=== PATIENT | female | born 2000 | race Hispanic/Latino ===

== ENCOUNTER 2018-10-18 21:54 | Emergency (ER) | payer OTHER, SELFPAY ==
[2018-10-18] MEDS ORDERED: ACETAMINOPHEN 500 MG TAB ONE (22:33)
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
== END 2018-10-19 00:25 | disposition home or self-care (01) ==
LOC: ER 21:54
DX: S00.33XA Contusion of nose, initial encounter (principal); Y04.0XXA Assault by unarmed brawl or fight, initial encounter
CPT/HCPCS: 99283

== ENCOUNTER 2020-07-14 08:55 | Emergency (ER) | payer OTHER ==
--- OUTSIDE RECORDS SUMMARY | 2020-07-14 08:57 | XMS REPORT | Continuity of Care Document ---
:[address] [facility] t Address [address] [place] [address] Care Team Providers Name Role Phone Jhoana Oneill Attending Clinician Problems This patient has no known problems. Allergies, Adverse Reactions, Alerts This patient has no known allergies or adverse reactions. Medications This patient has no known medications. Procedures This patient has no known procedures. Encounters Start End Encounter Admission Attending Care Care Encounter Source Date/Time Date/Time Type Type Clinicians Facility Department ID 2019-05-02 2019-05-02 Routine TYREE Chambers [id number] 04 14:19:28 15:21:15 Osmany Ely GYRO MECHANIC [id number] Visit REGIONAL [id number] MATERNAL [id number] & CHILD [address] [place] [address] Results This patient has no known results.
[2020-07-14 09:34] LABS: Urine Blood 1+ (Negative); Urine Glucose Negative (Negative); Urine Protein Negative (Negative); Urine pH 7.5 (5.0-7.0)
[2020-07-14 09:40] LABS: Absolute Lymphocytes (CBC) 2.4 K/uL (0.7-4.9); Basophils % 0.3 % (0-1.3); Hematocrit 37.2 % (36.0-45.0); Lymphocytes % 21.7 % (15.3-44.8); MPV 8.2 fL (7.6-11.3); RBC Red Blood Cell Count 3.91 M/uL (3.86-4.86)
[2020-07-14 10:10] LABS: BUN Blood Urea Nitrogen 4 mg/dL (7-18); Bicarbonate 23 mmol/L (21-32); Glucose Level 91 mg/dL (74-106); HCG, Quantitative 5686 mIU/mL (1-3); Potassium 3.7 mmol/L (3.5-5.1); Sodium Level 137 mmol/L (136-145)
[2020-07-14 10:26] LABS: Urine Bacteria <20 /HPF (<20); Urine RBC <5 /HPF (NONE SEEN)
--- NOTE | 2020-07-14 11:13 | ER ---
Nurse's Notes [facility] Name: Balbina Avery Age: 20 yrs Sex: Female : 2000 Arrival Date: 07/14/2020 Time: 08:59 Bed 6 Private MD: Diagnosis: Threatened Presentation: 07/14 09:01 Chief complaint: Spotty dark red vaginal bleeding with a grape sized blood clot x 2 hb hours. Denies pain. 19 weeks , does not remember due date or LMP Sees Dr. Vizcarra at [facility] in [facility]. Coronavirus screen: At this time, the client does not indicate any symptoms associated with coronavirus-19. Ebola Screen: No symptoms or risks identified at this time. Initial Sepsis Screen: Does the patient meet any 2 criteria? No. Patient's initial sepsis screen is negative. Does the patient have a suspected source of infection? No. Patient's initial sepsis screen is negative. Risk Assessment: Do you want to hurt yourself or someone else? Patient reports no desire to harm self or others. Onset of symptoms was July 14, 2020. 09:01 Method Of Arrival: Ambulatory hb 09:01 Acuity: AMELIE 3 hb CRAB PICKER: 09:16 2, Full Term 1, 0, Living 1 pm1 Historical: - Allergies: 09:05 No Known Allergies; hb - Home Meds: 09:05 None [Active]; hb - PMHx: 09:05 None; hb - PSHx: 09:05 None; hb - Immunization history:: Adult Immunizations up to date. - Social history:: Smoking status: Patient denies any tobacco usage or history of. Screenin:32 Abuse screen: Denies threats or abuse. Denies injuries from another. Nutritional ss screening: No deficits noted. Tuberculosis screening: Never had TB. Fall Risk None identified. Assessment: 09:32 General: Appears in no apparent distress. comfortable, Behavior is calm, cooperative, ss Denies fever, feeling ill, fatigue, chills. Pain: Denies pain. Neuro: Level of Consciousness is awake, alert, obeys commands, Oriented to person, place, time, situation, Biomedical Field Service Engineer are equal bilaterally Speech is normal. Cardiovascular: Capillary refill < 3 seconds is brisk in bilateral fingers. Respiratory: Airway is patent Trachea midline Respiratory effort is even, unlabored, Respiratory pattern is regular, symmetrical, Denies cough, shortness of breath. GI: Patient currently denies diarrhea, nausea, vomiting. : Reports vaginal bleeding that is "just like a period that started about 2 hours ago. Denies bleeding at this time." Denies burning with urination, urinary frequency. EENT: Nares are clear Oral mucosa is moist. Throat is clear. Derm: Skin is intact, is healthy with good turgor, Skin is dry, Skin is pink, warm \\T\\ dry. Musculoskeletal: Circulation, motion, and sensation intact. Range of motion: intact in all extremities, Swelling absent. 10:30 Reassessment: Patient appears in no apparent distress at this time. Patient and/or ss family updated on plan of care and expected duration. Pain level reassessed. Patient is alert, oriented x 3, equal unlabored respirations, skin warm/dry/pink. Patient denies pain at this time. 11:15 Reassessment: Upon discharge, patient states that right before she noticed the bleeding ss she had intercourse. PT verbalizes understanding importance of pelvic rest upon discharge. Vital Signs: 09:01 BP 135 / 65; Pulse 81; Resp 16; Temp 97.9; Pulse Ox 100% ; Weight 72.57 kg; Height 5 hb ft. 2 in. (157.48 cm); Pain 0/10; 09:49 BP 126 / 80; Pulse 90; Resp 16; Pulse Ox 100% ; sv 09:01 Body Mass Index 29.26 (72.57 kg, 157.48 cm) ED Course: 08:59 Patient arrived in ED. mr 09:00 Arm band placed on. hb 09:05 Triage completed. hb 09:06 Tim Cisneros, MOON is PHCP. pm1 09:06 Jean Mckay MD is Attending Physician. pm1 09:14 Caroline Kennedy, DANA is Primary Nurse. ss 09:32 Patient has correct armband on for positive identification. Bed in low position. Call ss light in reach. Pulse ox on. NIBP on. Warm blanket given. 09:32 Inserted saline lock: 20 gauge in right antecubital area, using aseptic technique. ss Blood collected. Patient maintains SpO2 saturation greater than 95% on room air. 10:11 Abo/rh Typing Sent. kj1 10:24 OB Limited In Process Unspecified. EDMS 11:06 Urine Microscopic Only Sent. sv 11:07 Quantitative Hcg Sent. sv 11:07 Basic Metabolic Panel Sent. sv 11:07 CBC with Diff Sent. 11:20 No provider procedures requiring assistance completed. IV discontinued, intact, ss bleeding controlled, No redness/swelling at site. Pressure dressing applied. Administered Medications: No medications were administered Outcome: 11:13 Discharge ordered by MD. pm1 11:20 Discharged to home ambulatory. 11:20 Condition: good 11:20 Discharge instructions given to patient, Instructed on discharge instructions, follow up and referral plans. Demonstrated understanding of instructions, follow-up care. 11:22 Patient left the ED. Signatures: Dispatcher [employer] Jayashree Altamirano RN RN ForrestFiona mr Caroline Kennedy RN RN Tim Cisneros, FRUIT BUYING GRADER FRUIT BUYING GRADER pm1 Kassidy Penny RN RN Ellie Patterson kj1 Corrections: (The following items were deleted from the chart) 10:24 10:10 In radiology for Transvaginal Ob+US.RAD.DION. EDMS EDMS
--- NOTE | 2020-07-14 11:13 | EDPHYS ---
Physician Documentation [facility] Name: Balbina Avery Age: 20 yrs Sex: Female : 2000 Arrival Date: 07/14/2020 Time: 08:59 Bed 6 Private MD: ED Physician Jean Mckay HPI: 07/14 09:16 This 20 yrs old Female presents to ER via Ambulatory with complaints of 19 wks pm1 , Vaginal Bleeding. 09:16 The patient presents with vaginal bleeding that is. Onset: The symptoms/episode pm1 began/occurred 2 hours prior to arrival. Associated signs and symptoms: The patient has no apparent associated signs or symptoms, Pertinent negatives: cramping, dysuria, fever. Severity of symptoms: in the emergency department the symptoms have resolved, and did so earlier today. The patient is sexually active, reportedly has a single partner, [place] 1 hour prior to onset of symptoms. The patient's method of control includes nothing. The patient has not experienced similar symptoms in the past. Patient has not had ultrasound from her OB yet. 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 - Social history:: Smoking status: Patient denies any tobacco usage or history of. ROS: 09:16 Positive for vaginal bleeding, Negative for urinary symptoms, pelvic pain. pm1 09:16 Constitutional: Negative for fever, chills, and weight loss, Cardiovascular: Negative for chest pain, palpitations, and edema, Respiratory: Negative for shortness of breath, cough, wheezing, and pleuritic chest pain, Abdomen/GI: Negative for abdominal pain, nausea, vomiting, diarrhea, and constipation, Back: Negative for injury and pain, MS/Extremity: Negative for injury and deformity, Skin: Negative for injury, rash, and discoloration. Exam: 09:16 Constitutional: This is a well developed, well nourished patient who is awake, alert, pm1 and in no acute distress. Head/Face: Normocephalic, atraumatic. 09:16 Skin: Warm, dry with normal turgor. Normal color with no rashes, no lesions, and no evidence of cellulitis. MS/ Extremity: Pulses equal, no cyanosis. Neurovascular intact. Full, normal range of motion. 09:16 Cardiovascular: Exam negative for acute changes, Rate: normal, Rhythm: regular, Pulses: no pulse deficits are appreciated. 09:16 Respiratory: Exam negative for acute changes, respiratory distress, shortness of breath. 09:16 Abdomen/GI: Inspection: gravid appearance, is noted, Palpation: abdomen is soft and non-tender, in all quadrants. 09:16 Neuro: Exam negative for acute changes, Orientation: is normal, Mentation: is normal, Motor: is normal, moves all fours. Vital Signs: 09:01 BP 135 / 65; Pulse 81; Resp 16; Temp 97.9; Pulse Ox 100% ; Weight 72.57 kg; Height 5 hb ft. 2 in. (157.48 cm); Pain 0/10; 09:49 BP 126 / 80; Pulse 90; Resp 16; Pulse Ox 100% ; sv 09:01 Body Mass Index 29.26 (72.57 kg, 157.48 cm) hb MDM: 09:10 Patient medically screened. pm1 10:50 Data reviewed: vital signs. Data interpreted: Pulse oximetry: on room air is 100 %. pm1 Interpretation: normal. Counseling: I had a detailed discussion with the patient and/or guardian regarding: the historical points, exam findings, and any diagnostic results supporting the discharge/admit diagnosis, lab results, radiology results, the need for outpatient follow up, an OB/Gyne specialist, to return to the emergency department if symptoms worsen or persist or if there are any questions or concerns that arise at home. 07/14 09:10 Order name: Quantitative Hcg pm1 07/14 09:10 Order name: Abo/rh Typing pm07/14 09:10 Order name: Basic Metabolic Panel pm1 07/14 09:10 Order name: CBC with Diff pm07/14 09:10 Order name: HCG, Quantitative; Complete Time: 10:46 EDMS 07/14 09:10 Order name: ABO/RH typing; Complete Time: 10:46 EDMS 07/14 09:10 Order name: Basic Metabolic Panel; Complete Time: 10:46 EDMS 07/14 09:10 Order name: CBC with Automated Diff; Complete Time: 10:46 EDMS 07/14 09:17 Order name: Urine Microscopic Only pm1 07/14 09:17 Order name: Urine Microscopic Only; Complete Time: 10:46 EDMS 07/14 09:33 Order name: Urine --Ancillary (enter results); Complete Time: 10:46 eb 07/14 09:33 Order name: Urine Dipstick-Ancillary; Complete Time: 10:46 EDDC 07/14 10:24 Order name: OB Limited EDMS 07/14 09:10 Order name: Urine Test (obtain specimen); Complete Time: 09:31 pm1 07/14 09:10 Order name: IV Saline Lock; Complete Time: 09:31 pm1 07/14 09:10 Order name: Labs collected and sent; Complete Time: 09:31 pm07/14 09:10 Order name: NPO; Complete Time: 09:14 pm1 07/14 09:10 Order name: Urine Dipstick-Ancillary (obtain specimen); Complete Time: 09:31 pm1 Administered Medications: No medications were administered Disposition: 16:38 Co-signature as Attending Physician, Jean Mckay MD. rn Disposition: 07/14/20 11:13 Discharged to Home. Impression: Threatened . - Condition is Stable. - Discharge Instructions: Threatened Miscarriage, Vaginal Bleeding During , Second Trimester, Pelvic Rest. - Medication Reconciliation Form, Thank You Letter, Antibiotic Education, Prescription Opioid Use form. - Follow up: Emergency Department; When: As needed; Reason: Worsening of condition. Follow up: Private Physician; When: 2 - 3 days; Reason: Recheck today's complaints, Continuance of care, Re-evaluation by your physician. - Problem is new. - Symptoms have improved. Signatures: Dispatcher [employer] [facility] Jean Mckay MD MD rn Smirch, Shelby, RN RN Tim Wiseman, MOON GAME PROGRAMER pm1 Kassidy Penny RN RN Corrections: (The following items were deleted from the chart) 10:24 09:18 Transvaginal Ob+US.RAD.BRZ ordered. [facility] 11:22 11:13 07/14/2020 11:13 Discharged to Home. Impression: Threatened . Condition ss is Stable. Forms are Medication Reconciliation Form, Thank You Letter, Antibiotic Education, Prescription Opioid Use. Follow up: Emergency Department; When: As needed; Reason: Worsening of condition. Follow up: Private Physician; When: 2 - 3 days; Reason: Recheck today's complaints, Continuance of care, Re-evaluation by your physician. Problem is new. Symptoms have improved. pm1
--- NOTE | 2020-07-14 11:39 | RAD REPORT ---
EXAM DESCRIPTION: US - OB Limited - 07/14/2020 10:24 am CLINICAL HISTORY: VAGINAL BLEEDING, COMPARISON: No comparisons FINDINGS: Limited OB sonography shows a closed internal os. Cervical canal is 5 cm long and shows no suspicious finding. Posterior placenta is low lying approximately mm from the internal os. No abrupt ion or marginal hematoma seen. No acute posterior placenta finding. Amniotic fluid volume is normal. measurements were obtained yielding in age of 23 weeks 6 days. Calculated ISSA is 11/04/2020. No gross anatomic abnormality on limited detail. Right ovary was seen with no right adnexal abnormality. Left ovary and left adnexa obscured by bowel. IMPRESSION: Single 23 week 6 day IUP with ISSA of 11/04/2020. Heart rate was 130 BPM. Posterior placenta is low lying measuring approximately 12 mm from a closed internal os. No abruption or marginal hematoma. Amniotic fluid volume is normal.
[2020-07-14 17:49] VITALS: TEMP 97.9; O2SAT 100
[2020-07-14 17:50] VITALS: BP 126/80
== END 2020-07-14 11:22 | disposition home or self-care (01) ==
LOC: ER 08:55
DX: O20.0 Threatened abortion (principal); Z3A.19 19 weeks gestation of pregnancy
CPT/HCPCS: 36415; 76815; 80048; 81003; 81015; 81025; 84702; 85025; 86900; 86901; 99284

== ENCOUNTER 2021-11-16 20:00 | Inpatient (IN) | payer OTHER ==
--- OUTSIDE RECORDS SUMMARY | 2021-11-16 20:25 | XMS REPORT | Continuity of Care Document ---
:2000 Author Organization [facility] t Address [address] [place] [address] Care Team Providers Name Role Phone OSMANY JOHNSON Primary Care Physician Unavailable DIMITRIS NICOLE Attending Clinician Unavailable Osmany Oneill Attending Clinician OSMANY JOHNSON Attending Clinician Unavailable Payers Payer Name Policy Type Policy Number Effective Date Expiration Date S ource Problems Condition Condition Condition Status Onset Resolution Last Treating Co mments Source Name Details Category Date Date Treatment Clinician Date Late Late Disease Active Univers 4-28 ity of care care 00:00: [place] affecting affecting 00 Medi zunilda Bran ch in second in second trimester trimester Obesity in Obesity in Disease Active U nivers 4-28 ity of 00:00: [place] 00 Medical Branch Measles, Measles, Disease Active Unive rs mumps, mumps, 7- ity of rubella rubella 00:00: [place] (MMR) (MMR) 00 Medical vaccinatio vaccinatio Br anch n status n status unknown unknown Varicella Varicella Disease Active Uni vers vaccinatio vaccinatio 7-20 it y of n status n status 00:00: [place] unknown unknown 00 Medical Branch History of History of Disease Active U nivers depression depression 7-20 it y of 00:00: [place] 00 Medical Branch History of History of Disease Active U nivers asthma asthma 7-20 ity of 00:00: [place] 00 Medical Branch 37 weeks 37 weeks Disease Active Unive rs gestation gestation 7-19 ity of of of 00:00: [place] 00 [facility] Branch COVID-19 COVID-19 Disease Active Unive rs virus IgG virus IgG 7-08 ity of antibody antibody 00:00: [place] detected detected 00 Medica l Branch Rubella Rubella Disease Active Univers non-immune non-immune 4-16 it y of status, status, 00:00: [place] antepartum antepartum 00 Me dical Branch Susceptibl Susceptibl Disease Active U nivers e to e to 4-16 ity of varicella varicella 00:00: [place] (non-immun (non-immun 00 Me dical e), e), Branch currently currently Short Short Disease Active Univers interval interval 4-15 ity of between between 00:00: [place] pregnancie pregnancie 00 Me dical s s Branch affecting affecting in third in third trimester, trimester, antepartum antepartum Multiparit Multiparit Disease Active U nivers y y 4-15 ity of 00:00: [place] Medical Branch History of History of Disease Active Overview : Univers suicide suicide 4-15 Formattin ity o f attempt attempt 00:00: g of this [place] 00 note Medical might be Branch different from the original. 2014 Limited Limited Disease Active Univers 4-15 ity of care, care, 00:00: [place] antepartum antepartum 00 Me dical Branch Short Short Disease Active Univers interval interval 4-15 ity of between between 00:00: [place] pregnancie pregnancie 00 Me dical s s Branch affecting affecting , , antepartum antepartum Disease Active Univers (spontaneo (spontaneo 1-06 it y of [place] vaginal [place] vaginal [place] delivery[place] 00 [facility] Branch Single Single Disease Active Univers live live 1-06 it y of 00:00: [place] Medical Branch BMI BMI Disease Active Univers 30.0-30.9, 30.0-30.9, 1-04 it y of adult adult 00:00: [place] [address] Medical Branch BMI BMI Disease Active 2019-0 Univers 29.0-29.9, 29.0-29.9, 8-15 it y of adult adult 00:00: [place] [address] Medical [place] Allergies, Adverse Reactions, Alerts Allergy Allergy Status Severity Reaction(s) Onset Inactive Treating Comm ents Source Name Type Date Date Clinician NO KNOWN Drug Active Univers ALLERGIE Class ity of S [facility] Social History Social Habit Start Date Stop Date Quantity Comments Source ASSERTION 2021-03-09 University of 00:00:00 [place] [facility] History SDWI University o f Alcohol Std [place] Medical Drinks Branch History SDWI University o f Alcohol Binge [place] Medic al Branch History [facility] o f Alcohol Comment [place] Med ical Branch Exposure to 2021-11-04 2021-11-14 Not sure University SARS-CoV-2 00:00:00 13:16:00 [facility] (event) [place] Alcohol intake 2021-11-07 2021-11-07 Lifetime University of 00:00:00 00:00:00 non-drinker [facility] (finding) [place] Tobacco use and 2021-10-28 2021-10-28 Smokeless tobacco Un iversity of exposure 00:00:00 00:00:00 non-user [facility] History SDOH 2018-11-17 2018-11-17 1 University o f Alcohol Frequency 00:00:00 [facility] [place] Sex Assigned At [birth year] Universit y of 00:00:00 00:00:00 [facility] Smoking Status Start Date Stop Date Source Never smoked tobacco [facility] [place] [place] Medications Ordered Filled Start Stop Current Ordering Indication Dosage Frequency Signature Comments Components Source Medication Medication Date Date Medication? Clinician (SIG) Name Name ferrous Yes [id number] 325mg Take 1 Un steven sulfate 325 8-08 tablet by ity of mg (65 mg 00:00: [place] iron[place] 00 the Medical tablet morning Branch and 1 tablet in the evening. ascorbic Yes [id number] 500mg Take 1 U nivers acid, 8-08 tablet by ity of vitamin C, 00:00: mouth in [place] as 500 mg 00 the Medical tablet morning Branch and 1 tablet at noon and 1 tablet in the evening. 2021- Yes [id number] 1{packe Take 1 Univers vit 4-28 t} Packet by ity of 33-iron-fol 00:00: mouth [place] ic-dha 00 daily. Medical (SELECT-OB Branch + DHA) 29 mg iron-1 mg -250 mg combo pack Immunizations Ordered Filled Immunization Date Status Comments Sourc e Immunization Name Name TDAP 2021-10-08 Completed University 00:00:00 [facility] Varicella 2020-10-24 Completed [facility] (varivax)(chicken 00:00:00 [place] M edical pox) Branch [facility] 2020-08-16 Completed [facility] 00:00:00 [facility] Influenza Virus 2019-01-26 Completed [facility] y of Vaccine Quad .5 mL 00:00:00 [facility] IM 6+ MO Branch TD 2019-01-26 Completed [facility] 00:00:00 [facility] HPV 2018-11-22 Completed [facility] 00:00:00 [facility] HPV 2010-10-23 Completed [facility] 00:00:00 [facility] Vital Signs Vital Name Observation Time Observation Value Comments Source Systolic blood 2021-11-14 18:16:00 120 mm[Hg] Univer sity of pressure [facility] Diastolic blood 2021-11-14 18:16:00 75 [facility]Hg[facility] 2021-11-14 18:16:00 75 /min [facility] Body temperature 2021-11-14 18:16:00 36.72 Bee [facility] Respiratory rate 2021-11-14 18:16:00 20 /min [facility] Body height 2021-11-14 18:16:00 157.5 cm [facility] Body weight 2021-11-14 18:16:00 75.388 kg [facility] BMI 2021-11-14 18:16:00 30.40 kg/m2 [facility] Procedures This patient has no known procedures. 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
[2021-11-16] MEDS ORDERED: METHYLERGONOVINE 0.2MG/ML AMP IM PRN (20:28)
[2021-11-16] MEDS ORDERED: CARBOPROST TROME 250 MCG/ML IM PRN (20:28)
[2021-11-16] MEDS ORDERED: Ringers Lactate 1,000 ML IV PRN (20:28)
[2021-11-16] MEDS ORDERED: PENICILLIN 5 MU in NA CHLORIDE 0.9% 100 ML IV ONE (20:28)
[2021-11-16] MEDS ORDERED: NA CHLORIDE 0.9% 100 ML ONE (20:33)
[2021-11-16] MEDS ORDERED: PENICILLIN G POT 5 MU/VIAL IV ONE (20:33)
[2021-11-16] MEDS ORDERED: OXYTOCIN/LR 20 UNIT/1,000 ML BAG IV ONE (20:40)
[2021-11-16] MEDS ORDERED: LIDOCAINE 1% MPF 30 ML VIAL ONE (20:41)
[2021-11-16] MEDS ORDERED: CARBOPROST TROME 250 MCG/ML IM ONE (20:42)
[2021-11-16] MEDS ORDERED: METHYLERGONOVINE 0.2MG/ML AMP IM ONE (20:42)
[2021-11-16] MEDS ORDERED: Oxycodone HCl/Acetaminophen 1 TAB TAB PO PRN ×2 (20:47)
[2021-11-16] MEDS ORDERED: DOCUSATE NA/SENNA CONC 1 TAB PO PRN (20:47)
[2021-11-16] MEDS ORDERED: DIPHENHYDRAMINE 25 MG TAB/CAP PO PRN (20:47)
[2021-11-16] MEDS ORDERED: ACETAMINOPHEN 500 MG TAB PO PRN (20:47)
[2021-11-16] MEDS ORDERED: BISACODYL 10 MG RECTAL SUPP PR PRN (20:47)
[2021-11-16] MEDS ORDERED: OXYTOCIN/LR 20 UNIT/1,000 ML BAG IV SCH (21:00)
[2021-11-16] MEDS ORDERED: Ringers Lactate 1,000 ML IV SCH (21:00)
[2021-11-16 22:23] LABS: Absolute Lymphocytes (CBC) 2.2 K/uL (0.7-4.9); Hematocrit 27.9 % (36.0-45.0); Lymphocytes % 20.1 % (15.3-44.8); MCV 82.2 fL (80-100); MPV 8.5 fL (7.6-11.3); RBC Red Blood Cell Count 3.39 M/uL (3.86-4.86)
[2021-11-16 22:51] LABS: SARS-CoV-2 Antigen Rapid Res Negative (Negative)
[2021-11-17 00:44] LABS: RPR (Rapid Plasma Reagin) NON-REACT (NON-REACT)
[2021-11-17 00:48] VITALS: BMI 30.3
--- NOTE | 2021-11-17 08:00 | DS ---
21-year-old, 3, para 2, followed by [facility] antepartum, dropped into our institution in active r apidly advancing labor, delivered of a 6-pound 14-ounce female, Apgars 9 and 9. No episiotomy. No l aceration. Schultze delivery of the placenta, which was inspected and noted to be intact. Uterus co ntracted down well with IV drip, Pitocin, less than 150 cc blood loss. Patient is Rh positive. Her Rubella status is unknown. She was offered penicillin, but went rapidly and the patient did receive 1 dose of penicillin before the baby was born. , afebrile, ambulating, voiding. Lochia is normal. She will be dismissed later today to call the [facility] Clinic on Thursday for checkup. She knows to report any fever of 100 degrees or more, severe pain, heavy bleeding, or any other typ e of abnormalities. She has been offered Tdap immunization and Rubella immunization since we do not know her Rubella status. Final Diagnoses: Term intrauterine at 38 weeks. SDMB drop in, delivery. Penicillin proph ylaxis. Tdap and Rubella immunizations offered. BRIEN/CARMENZA Voice ID: [id number] Report ID: [id number]
[2021-11-17] MEDS: IBUPROFEN 600 MG TAB PO PRN ×2 (11:34→17:15)
[2021-11-17 21:19] VITALS: BP 128/59; TEMP 98.6
--- NOTE | 2021-11-18 10:51 | PREOPHP ---
Date of Admission: 11/16/2021 History: This is a 21-year-old, 3, para 2, 38 weeks' gestation, followed antepartum without apparent complications at [facility], came into our facility in active rapidly advancing labor, 7 cm, +1 st ation on admission. Family History: Noncontributory. Allergies: NO KNOWN ALLERGIES. THE PATIENT CLAIMS NO PREVIOUS PROBLEMS WITH THIS OR WITH THE OTHER 2 PREGNANCIES. Physical Examination: HEENT: Clear. Pupils equal, round, reactive to light and accommodation. Conjunctivae well perfused . No oral, lingual, or buccal lesions. Chest/Lungs: Clear. Heart: Without murmurs, thrills, heaves, or rubs. Breasts: Not examined. Abdomen: Term size. Extremities: Clear without edema, cyanosis, or clubbing. Pelvic: As stated. Assessment/plan: Admit for stabilization and delivery, expect delivery rather rapidly. We have no p renatal records and therefore we will drop in laboratory. BRIEN/CARMENZA Voice ID: [id number]
[2021-11-20 03:15] LABS: HBsAG Nonreactive (Nonreactive)
[2021-11-20 19:22] LABS: HIV AG/AB 4TH GEN Non-reactive (Non-reactive)
--- NOTE | 2021-11-25 13:42 | OP ---
Surgeon: Roderick Beauchamp MD Procedure In Detail: A 21-year-old, 3, para 2, followed by [facility] antepartum and dropped in to our institution in active rapidly advancing labor. Delivered a 6 pounds 14 ounces female, Apgars 9 and 9. No episiotomy. No laceration. Schultze delivery of the placenta, noted to be intact and com plete. Uterus contracted down well with IV drip, Pitocin. Less than 150 cc blood loss. The patient Rh positive, rubella status. Final Diagnoses: Term intrauterine . Spontaneous vaginal delivery. Records and laboratory pending. Penicillin prophylaxis was given. BRIEN/CARMENZA Voice ID: [id number] Report ID: [id number]
== END 2021-11-17 22:22 | disposition home health service (06) | DRG 807 ==
LOC: L&D 20:00 → 2ND-WC 20:22
PROVIDERS: ADMIT Specialist; ATTEND Specialist
PROC: 10E0XZZ Delivery of Products of Conception, External Approach (ICD-10-PCS; principal; 2021-11-16)
PROC: 10907ZC Drainage of Amniotic Fluid, Therapeutic from Products of Conception, Via Natural or Artificial Opening (ICD-10-PCS; 2021-11-16)
DX: O99.824 Streptococcus B carrier state complicating childbirth (principal); Z37.0 Single live birth; Z3A.38 38 weeks gestation of pregnancy; Z20.822 Contact with and (suspected) exposure to COVID-19
CPT/HCPCS: 36415; 85025; 86592; 86762; 86850; 86900; 86901; 87340; 87389; 87811; J2210; J2540; J2590; J7120